=== PATIENT | male | born 1985 | race Caucasian/White ===

== ENCOUNTER 2017-03-19 07:15 | Emergency (ER) | payer OTHER ==
[~2017-03-19] VITALS: Ht 162.6 cm; Wt 65.8 kg
[~2017-03-19 07:15] MED LIST: IBUPROFEN 600600 M1 PO; NOHOMEMEDICATIONS; NORCO 5-325 TA1 EACH PO; ZANTAC 150MG T150 M1 PO; ZOFRAN4 MG PO
[2017-03-19 07:36] LABS: HEMATOCRIT 38.4 % (42.0-52.0); HEMOGLOBIN 12.9 gm/dL (14.0-18.0); MCH 29.3 pg (26.0-34.0); MCHC 33.7 g/dL (28.0-37.0); MCV 87.2 fL (80.0-100.0); RBC 4.41 mil/uL (4.50-6.00); RDW 13.3 % (10.5-14.5); WBC 12.1 thou/uL (4.0-11.0)
[2017-03-19 07:46] LABS: CALCIUM 9.3 mg/dL (8.5-10.1); CREATININE 1.2 mg/dL (0.7-1.3); POTASSIUM 3.7 mmol/L (3.5-5.1)
[2017-03-19 08:30] LABS: URINE BILIRUBIN NEGATIVE (Negative); URINE BLOOD 3+ (Negative); URINE COLOR YELLOW; URINE GLUCOSE-RANDOM* NEGATIVE (Negative); URINE KETONES 1+ (Negative); URINE LEUKOCYTES-REFLEX NEGATIVE (Negative); URINE PROTEIN (DIPSTICK) TRACE (Negative); URINE UROBILINOGEN 0.2 E.U./dl (0.2-1.0)
[2017-03-19 08:36] LABS: CASTS None Seen /LPF (None Seen); CRYSTALS None Seen /LPF (None Seen); SQUAMOUS None Seen /LPF (0-3)
[2017-03-19 08:37] LABS: URINE WBC-REFLEX None Seen /HPF (0-5)
[2017-03-19] MEDS ORDERED: OXYCODONE HCL 55 MG PO (08:46)
[2017-03-19] MEDS ORDERED: KEFLEX500 MG PO (08:46)
[2017-03-19] MEDS ORDERED: FLOMAX0.4 MG PO (08:46)
[2017-03-19 09:05] VITALS: BP 134/72
== END 2017-03-19 09:09 | disposition home or self-care (01) ==
LOC: ER 07:15
PROVIDERS: Emergency Medicine
DX: N20.1 Calculus of ureter (principal); N39.0 Urinary tract infection, site not specified